=== PATIENT | female | born 1980 | race African-American/Black ===

== ENCOUNTER 2017-02-08 15:13 | Outpatient (CLI) | payer BC ==
[~2017-02-08 15:13] MED LIST: FOLI1TAB7 PO; LEVO88TA3 PO; ONDA4TAB10 SL; PRENTAB26 PO
== END 2017-02-08 16:15 | disposition home or self-care (01) ==
LOC: C.OPB 15:13 → C.LD 15:14 → C.OPB 16:15
PROVIDERS: ATTEND Obstetrics & Gynecology
DX: O30.043 Twin pregnancy, dichorionic/diamniotic, third trimester (principal); Z3A.32 32 weeks gestation of pregnancy

== ENCOUNTER 2017-02-17 09:00 | Outpatient (CLI) | payer BC ==
[2017-03-10] MEDS ORDERED: OXYC-57 PO (06:56)
[2017-03-10] MEDS ORDERED: MTR600X PO (06:56)
== END 2017-02-17 10:00 | disposition home or self-care (01) ==
LOC: C.LD 09:00 → C.OPB 09:00
PROVIDERS: ATTEND Obstetrics & Gynecology
DX: O30.049 Twin pregnancy, dichorionic/diamniotic, unspecified trimester (principal); Z3A.33 33 weeks gestation of pregnancy

== ENCOUNTER 2017-02-23 20:35 | Outpatient (CLI) | payer BC ==
[~2017-02-23] VITALS: Ht 165.1 cm; Wt 86.8 kg
[2017-02-23 21:23] VITALS: Ht 165.1 cm; Wt 86.8 kg
== END 2017-02-23 21:10 | disposition home or self-care (01) ==
LOC: C.OPB 20:35 → C.LD 20:38 → C.OPB 21:10
PROVIDERS: ATTEND Obstetrics & Gynecology
DX: O30.043 Twin pregnancy, dichorionic/diamniotic, third trimester (principal); Z3A.34 34 weeks gestation of pregnancy

== ENCOUNTER 2017-03-02 17:28 | Outpatient (CLI) | payer BC ==
[~2017-03-02 17:28] MED LIST changes: -CALC500C3 PO; -FAMO20TA11 PO; -MTR600X PO; -OXYC-57 PO
--- NOTE | 2017-05-15 14:17 | EDITING REQUIRED CODING QUERY ---
DIAGNOSIS NEEDED To promote full compliance with coding requirements relating to patient care, physician participation is requested in all cases of extra hand uncertainty. Please assist us with the question(s) below: Coding Question: The patient received care in labor and delivery on 03/02/17 as noted within the record. Please document the diagnosis that is being addressed by the medication/treatment. Provider Response: DIAGNOSIS: twins Thank you for your assistance, Jennifer Villagran - Cds Sales Advisor
== END 2017-03-02 18:30 | disposition home or self-care (01) ==
LOC: C.OPB 17:28 → C.LD 17:29 → C.OPB 18:30
PROVIDERS: ATTEND Obstetrics & Gynecology
DX: O30.043 Twin pregnancy, dichorionic/diamniotic, third trimester (principal); Z3A.36 36 weeks gestation of pregnancy

== ENCOUNTER → 2017-03-02 | Outpatient (CLI) | payer BC ==
[~2017-03-02] MED LIST changes: +CALC500C3 PO; +FAMO20TA11 PO; +MTR600X PO; +OXYC-57 PO
== END | disposition home or self-care (01) ==
LOC: C.LABSPEC 17:47
PROVIDERS: ATTEND Obstetrics & Gynecology
DX: O09.813 Supervision of pregnancy resulting from assisted reproductive technology, third trimester (principal)

== ENCOUNTER 2017-03-06 16:01 | Inpatient (IN) | payer BC ==
[~2017-03-06] VITALS: Ht 165.1 cm; Wt 90.0 kg
[2017-03-06 17:20] LABS: BASO % 0.3 %; BASO ABS # 0.02 K/uL (0-0.2); COMPLETE YES; EOS % 2.6 %; HEMATOCRIT 33.1 % (37-47); IG% 0.8 %; LYMPH ABS # 1.99 K/uL (1.2-3.4); MEAN CELL VOLUME 88.3 fL (80-100); MEAN CORPUSCULAR HEMOGLOBIN 27.7 pg (25-34); MEAN CORPUSCULAR HGB CONC 31.4 g/dl (32-36); MEAN PLATELET VOLUME 11.8 fL (7.4-10.4); MONO % 9.5 %; NEUT % 55.8 %; PLATELET COUNT 114 K/uL (130-400); RED BLOOD COUNT 3.75 M/uL (4.2-5.4); WHITE BLOOD COUNT 6.42 K/uL (4.8-10.8)
[2017-03-06 18:08] LABS: ALB/GLOB RATIO 0.5 (0.9-2); ALKALINE PHOSPHATASE 200 U/L (45-117); ALT/SGPT 18 U/L (12-78); AST/SGOT 31 U/L (15-37); BLOOD UREA NITROGEN 14 mg/dl (7-18); CALCIUM 8.7 mg/dl (8.5-10.1); CARBON DIOXIDE 24 mmol/L (21-32); CHLORIDE 109 mmol/L (98-107); GLUCOSE 73 mg/dl (70-99); POTASSIUM 4.6 mmol/L (3.5-5.1); SODIUM 139 mmol/L (136-145)
[2017-03-06] MEDS ORDERED: FAMO20TA11 PO (18:32)
[2017-03-06] MEDS ORDERED: CALC500C3 PO (18:33)
[2017-03-06 18:34] VITALS: Ht 165.1 cm; Wt 90.0 kg
[2017-03-06] MEDS ORDERED: LACTATED RINGER'S 1000ML 1,000 ML IV SCH ×2 (20:40→22:58)
[2017-03-06] MEDS ORDERED: CITRIC ACID/SODIUM CITRATE 15 ML UDC PO ONE (20:45)
[2017-03-06] MEDS ORDERED: CLINDAMYCIN IV 900 MG in DEXTROSE 5% ADD-VANTAGE 100ML 100 ML IV ONE (21:00)
[2017-03-06 21:24] LABS: BASO % 0.3 %; BASO ABS # 0.02 K/uL (0-0.2); COMPLETE YES; EOS % 2.7 %; HEMATOCRIT 35.4 % (37-47); IG% 0.5 %; LYMPH % 32.7 %; LYMPH ABS # 2.57 K/uL (1.2-3.4); MEAN CELL VOLUME 88.5 fL (80-100); MEAN CORPUSCULAR HGB CONC 30.5 g/dl (32-36); MEAN PLATELET VOLUME 11.4 fL (7.4-10.4); MONO % 7.1 %; NEUT % 56.7 %; PLATELET COUNT 112 K/uL (130-400); WHITE BLOOD COUNT 7.87 K/uL (4.8-10.8)
[2017-03-06] MEDS ORDERED: FENTANYL CITRATE INJ 50 MCG/1 ML 2 ML VIAL ONE (21:34)
[2017-03-06] MEDS ORDERED: MoRPHine SULFATE PF 1 MG/ML 10 ML AMP/VIAL ONE (21:34)
[2017-03-06] MEDS ORDERED: OXYTOCIN INJ 10 UNITS/ML VIAL ONE (21:35)
--- NOTE | 2017-03-06 21:54 | HISTORY & PHYSICAL EXAMINATION ---
DATE OF ADMISSION: 03/06/2017 ADMISSION DIAGNOSES: 1. Dichorionic/diamniotic intrauterine at 36 and 0/7 weeks. 2. Preeclampsia with severe features. HISTORY: Kelsie is a 37-year-old female, 2, para 1-0-0-1, with an EDC of 04/02/2017. This is an IVF with embryo transfer with Jermain Perry on 07/15/2016. Her EDC is 04/02/2017 based on excellent dating. She presented to labor and delivery for routine nonstress test of these twin babies. So far, the had been uncomplicated. She has hypothyroid and has been managed. She had a reactive NST x2 for these babies, but when we dipped her urine, it showed +3 protein. This was the first proteinuria dipped throughout this . Her pressures under observation were 122-139/81-90. Her pressures in the office had been as low as 98/60 and most recently at her 35-week visit was 108/84. She had laboratory values done showing normal liver functions, creatinine of 1.10, hemoglobin of 10.4, hematocrit of 33.1, and a platelet count of 114,000. The patient denies history of kidney issues and I have no other comparative creatinine, so this is quite abnormal. I do have a platelet comparison from 08/2016 which was 304,000. I believe that this patient has preeclampsia with severe features. I discussed this case with Dr. Fernández in Maternal Medicine at [facility], she agrees with my assessment and recommends delivery. The patient had hoped to have a vaginal delivery as she had previously had a vaginal delivery and both babies are head down. We spent a long time discussing the risks, benefits, and side effects of proceeding with immediate delivery versus induction. We discussed the possibility of a vaginal delivery of 1 baby and the need for, whatever reason, of a delivery for baby #2. We discussed that already her platelets were low at 114,000 and I suspected with time they would continue to decrease. We discussed that anesthesia will likely not place any kind of regional anesthetic should her platelets drop below 100,000. So if we proceeded with induction, she would likely need cervical ripening, this would take time, and it is possible that she would bypass an opportunity where she could receive regional anesthetic. We discussed that if she was successful, that certainly the vaginal-vaginal situation for delivery would have less pain and discomfort for the patient. We discussed also the risks proceeding with delivery. Additionally, we discussed the risks that at 36 weeks, we may have breathing issues that might require transfer of 1 or both of the babies, although this would be quite unlikely given the gestational age. After prolonged discussion and answering all of the patient and her 's questions, they have decided to proceed with controlled section delivery at this time. PAST OBTECTRICAL AND GYNECOLOGIC HISTORY: This is the patient's second . Her first was in 10/2015, this was a normal spontaneous vaginal delivery of a 7-pound 2-ounce baby. This was an uncomplicated delivery, although it was postdates induction and did take quite some time. She denies history of abnormal Pap smears or sexually transmitted illnesses. ALLERGIES: TO PENICILLIN. THIS WAS A SKIN TEST THAT CAUSED HIVES. She has not had cephalosporins to her knowledge. MEDICATIONS: Include Synthroid, Zofran as needed, folic acid, vitamin, iron, and Pepcid-AC as needed. PAST MEDICAL HISTORY: Significant for anxiety and depression for which she currently takes no medications, hypothyroidism, and she has had the varicella vaccine. SURGICAL HISTORY: Includes a D\T\C hysteroscopy, treatment for infertility with IVF, a ganglion cyst removed from her left foot, and oral surgery. SOCIAL HISTORY: The patient denies tobacco, alcohol or drug use. She lives with her and her son Ankush. PHYSICAL EXAMINATION: GENERAL: This is a well-developed, well-nourished -Italian female in no acute distress. VITAL SIGNS: Highest blood pressure 139/90, pulse normal. NECK: Supple without thyromegaly or lymphadenopathy. CHEST: Clear to auscultation bilaterally. CARDIOVASCULAR: Regular rate and rhythm without murmurs, gallops or rubs. BACK: Without costovertebral angle tenderness. ABDOMEN: Gravid, soft, nontender. There is no right upper quadrant tenderness. EXTREMITIES: Show +1 to 2 edema to the knee. Normal DTRs and no clonus. GENITALIA: Cervix is deferred. Tocodynamometer shows no contractions. External monitor shows both babies to be category 1. LABORATORY DATA: As noted above. Blood type O positive, antibody negative, rubella immune, RPR nonreactive, hepatitis B negative, HIV negative. Chlamydia and gonorrhea cultures negative. Cystic fibrosis screening negative. Glucose tolerance test x2 normal. Group B strep has not been performed yet. ASSESSMENT AND PLAN: Kelsie is a 37-year-old 2, para 1-0-0-1, at 36 and 0/7 weeks with di/di in vitro fertilization twins. She now has developed preeclampsia with severe features with a creatinine of 1.1, +3 proteinuria, and platelets that are 114,000. The patient and her , after discussion with Dr. Fernández at [facility] with Maternal Medicine, have been recommended delivery which is what I had recommended to the patient and her . After significant conversation, we have decided to proceed with primary section. The risks of the procedure were discussed with the patient including the risks of anesthesia, bleeding requiring transfusion, infection and poor wound healing, damage to surrounding structures including bowel, bladder, vessels, nerves and ureters, with need for further surgery, hospitalization or intervention. We discussed the possibility of injury to the baby. We discussed the possibility with any surgery including heart attack, blood clot, stroke or . Consent was reviewed and signed. We planned on proceeding with delivery. The patient accepts the small risk of prematurity and transferring of the babies that might occur at 36 weeks. They would prefer to keep all their family together if possible. CONCHITA
[2017-03-06] MEDS ORDERED: PHENYLEPHRINE HCL INJ 10 MG/ML VIAL ONE (22:31)
[2017-03-06] MEDS ORDERED: ONDANSETRON INJ 2 MG/ML 2 ML VIAL ONE ×2 (22:31→23:01)
[2017-03-06] MEDS ORDERED: OXYTOCIN INJ 20 UNITS in LACTATED RINGER'S 1000ML 1,000 ML IV SCH (22:58)
[2017-03-06] MEDS ORDERED: MAGNESIUM SULFATE / WTR 1,000 ML IV ONE (22:58)
[2017-03-06] MEDS ORDERED: DC PCA PRN (23:00)
[2017-03-06] MEDS ORDERED: DIPHTHERIA/TETANUS/PERTUSSIS 0.5 ML SYR/VIAL IM. ONE (23:00)
[2017-03-06] MEDS ORDERED: SUPERCREAM 0.870 % 15GM JAR EXT PRN (23:00)
[2017-03-06] MEDS ORDERED: LANOLIN OINT EXT PRN ×2 (23:00)
[2017-03-06] MEDS ORDERED: NALOXONE HCL INJ 0.08 MG in SYRINGE 1.8 ML IV PRN (23:04)
[2017-03-06] MEDS ORDERED: LACTATED RINGER'S 1000ML 500 ML IV PRN (23:04)
[2017-03-06] MEDS ORDERED: SODIUM CHLORIDE 0.9% 1000ML 1,000 ML IV PRN (23:04)
[2017-03-06] MEDS ORDERED: NALOXONE HCL INJ 1 MG in SODIUM CHLORIDE 0.9% 1000ML 1,000 ML IV PRN (23:04)
--- NOTE | 2017-03-06 23:12 | Medical Student: [facility] ---
Immediate Operative Summary Operative Date March 06, 2017. Pre-Operative Diagnosis Twin at 36 weeks complicated by severe preeclampsia Post-Operative Diagnosis Same Procedure(s) Performed Primary c/s Surgeon Dr. Wan Twine Winder Surgeon(s) Dr. Albert Estimated Blood Loss 800cc Findings Viable Baby A, boy delivered breech, 7/8, 6lbs. Viable Baby B, girl transverse, but rotated to vertex, 7/7/8, [id number] Normal appearing uterus and adnexa noted. Fluids (cc crystalloids) IVF - 1800cc Specimens Placenta 2x (Baby A and Baby B) Drains Cody Anesthesia Spinal Complication(s) None Disposition L&D
[2017-03-06] MEDS ORDERED: NALBUPHINE HCL INJ 10 MG/ML AMP IV PRN (23:15)
[2017-03-06] MEDS ORDERED: NALOXONE HCL 0.4 MG/1 ML VIAL/CARP IV PRN (23:15)
[2017-03-06] MEDS ORDERED: ONDANSETRON INJ 2 MG/ML 2 ML VIAL IV PRN (23:15)
[2017-03-06] MEDS ORDERED: MoRPHine SULFATE PF 1 MG/ML 10 ML AMP/VIAL EPI PRN (23:15)
[2017-03-06] MEDS ORDERED: MEPERIDINE HCL 25 MG/ML CARP IV PRN (23:15)
[2017-03-06] MEDS ORDERED: MoRPHine SULFATE 2 MG/ML CARP IV PRN (23:15)
[2017-03-06] MEDS ORDERED: EpHEDrine SULFATE INJ 50 MG/ML AMP IV PRN (23:15)
[2017-03-06] MEDS ORDERED: DiphenhydrAMINE HCL 50 MG/ML VIAL IV PRN (23:15)
[2017-03-06] MEDS ORDERED: DC INTRASPINAL MORPHINE SCH (23:15)
[2017-03-06] MEDS ORDERED: NO NARCOTICS OR SEDATIVES SCH (23:15)
[2017-03-06] MEDS ORDERED: KETOROLAC TROMETHAMINE 30 MG/ML VIAL IV. PRN (23:15)
--- NOTE | 2017-03-06 23:15 | [facility] Post Operative Brief Note ---
Immediate Operative Summary Operative Date March 06, 2017. Pre-Operative Diagnosis Nelson IUP at 36 weeks Pre-eclampsia with severe features Post-Operative Diagnosis Nelson IUP at 36 weeks Pre-eclampsia with severe features Procedure(s) Performed Primary Caesarean Section Live male child at 2213 "A" Live female child at 2214 "B" Surgeon Dr. Wan Inspectors And Regulatory Officers Surgeon(s) Dr. Albert Estimated Blood Loss 800ml Findings VIABLE MALE , BABY A, DELIVERED BREECH, APGARS 7/8, WT 6#. VIABLE FEMALE , BABY B, TRANSVERSE AFTER DELIVERY OF B AND CONVERTED TO VERTEX, APGARS 7 /7/8., WT 5#15 OZ. NL UTERUS, TUBES AND OVARIES NOTED. Fluids (cc crystalloids) 1800CC Specimens A: Placenta "A"-exam Placenta "B"-exam B: Cord blood "A" Cord blood "B" C: Arterial & Venous Cord Gases "A" Arterial & Venous Cord Gases "B" Drains ROWELL Anesthesia SPINAL Complication(s) None Disposition L&D
[2017-03-06] MEDS ORDERED: MISOPROSTOL 200 MCG TAB ONE (23:34)
[2017-03-06] MEDS ORDERED: MISOPROSTOL 200 MCG TAB PR STA (23:42)
--- NOTE | 2017-03-06 23:59 | Anesthesiology Progress Note ---
Anesthesia Post Op Note Date & Time March 06, 2017 at 23:59 Notes Mental Status: alert / awake / arousable, participated in evaluation Pt Amnestic to Procedure: Yes Nausea / Vomiting: adequately controlled Pain: adequately controlled Airway Patency, RR, SpO2: stable & adequate BP & HR: stable & adequate Hydration State: stable & adequate Neuraxial Anesthesia: was administered, sensory block is resolving Anesthetic Complications: no major complications apparent The patient has some postop bleeding from uterine atony that Dr. Wan is monitoring.
[2017-03-07 00:06] LABS: HEMATOCRIT 33.5 % (37-47); MEAN CELL VOLUME 88.9 fL (80-100); MEAN CORPUSCULAR HEMOGLOBIN 28.1 pg (25-34); MEAN PLATELET VOLUME 11.9 fL (7.4-10.4); PLATELET COUNT 107 K/uL (130-400); RED BLOOD COUNT 3.77 M/uL (4.2-5.4)
[2017-03-07 00:13] LABS: MEAN CORPUSCULAR HGB CONC 31.6 g/dl (32-36)
[2017-03-07] MEDS: GENTAMICIN INJ 80 MG in DEXTROSE 5% 100ML 100 ML IV SCH ×3 (02:11→17:34)
[2017-03-07] MEDS ORDERED: PHENYLEPHRINE 100MCG/ML 5ML SYR ONE (02:49)
[2017-03-07] MEDS: CLINDAMYCIN IV 900 MG in DEXTROSE 5% ADD-VANTAGE 100ML 100 ML IV SCH ×2 (06:19→13:44)
[2017-03-07 06:27] LABS: CALCIUM 8.1 mg/dl (8.5-10.1); POTASSIUM 4.5 mmol/L (3.5-5.1)
[2017-03-07 06:28] LABS: HEMATOCRIT 29.7 % (37-47); MEAN CELL VOLUME 87.4 fL (80-100); MEAN CORPUSCULAR HEMOGLOBIN 28.8 pg (25-34); MEAN PLATELET VOLUME 12.2 fL (7.4-10.4); PLATELET COUNT 101 K/uL (130-400); PLT ESTIMATE DECREASED; WHITE BLOOD COUNT 10.38 K/uL (4.8-10.8)
[2017-03-07 06:31] LABS: ALB/GLOB RATIO 0.5 (0.9-2)
[2017-03-07] MEDS: PRENATAL VITAMIN TAB PO SCH (08:27)
[2017-03-07] MEDS: SIMETHICONE 80 MG CHEW PO SCH ×3 (08:27→17:26)
[2017-03-07] MEDS: DOCUSATE SODIUM 100 MG CAP PO SCH ×2 (08:27→23:21)
--- NOTE | 2017-03-07 09:28 | OPERATIVE REPORT ---
DATE OF OPERATION: 03/06/2017 PREOPERATIVE DIAGNOSES: 1. Dichorionic/diamniotic twin intrauterine at 36 and 0/7 weeks. 2. Preeclampsia with severe features. POSTOPERATIVE DIAGNOSES: Same. PROCEDURES: Primary low transverse section. SURGEON: Sylwia Wan MD. BOBBIN CLEANER HAND: Marquise Albert MD and KYAW Hsieh. ANESTHESIA: Spinal. ESTIMATED BLOOD LOSS: 800 mL. FLUIDS: 1800 mL. URINE OUTPUT: 150 mL of clear yellow urine draining from the bladder at the end of the procedure. INDICATIONS: Kelsie is a 37-year-old white female 2, para 1-0-0-1, who presented for a twin NST at 36 weeks. She was discovered to have 3+ protein, which was a new finding and a creatinine of 1.10 and platelets of 114,000. Given this situation, the diagnosis of preeclampsia with severe features was made, despite the fact that her pressures were not severe at this time. A discussion was had with maternal medicine, who recommended delivery. After a long discussion, the patient decided on delivery. FINDINGS: Viable first baby delivered was a male in breech presentation, delivered from a damaris breech presentation, Apgars 7 and 8, weighing 6 pounds. Baby B was a transverse after the delivery of baby A and was converted from head in the left upper quadrant to cephalic and then delivered from cephalic presentation. Apgars 7, 7 and 8, weight 5 pounds 15 ounces. Clear fluid was noted with both babies. Normal uterus, tubes, and ovaries were noted bilaterally. COMPLICATIONS: None. DRAINS: Cody. DISPOSITION: To recovery room in stable condition. DESCRIPTION OF PROCEDURE: The patient was taken to the operating room where she was identified verbally and by bracelet. She was seated on the operating table, where a spinal anesthetic was placed by Dr. Burroughs with anesthesia. She was then placed in dorsal supine position and a leftward tilt. A Cody catheter was placed sterilely. She was prepped and draped in normal sterile fashion. Her anesthetic was tested and found to be adequate. A timeout was held, identifying correct patient, position, procedure and preoperative antibiotics. A Pfannenstiel skin incision was made with the knife and taken down to the underlying layer of fascia with Bovie electrocautery. Bleeding was attended to with Bovie electrocautery. Fascia was incised in the midline with cautery and taken out laterally with scissors. The superior edge of the fascial incision was grasped, elevated and the underlying layer of rectus muscle was taken off bluntly and with scissors. Bleeding was attended to with Bovie electrocautery. In a similar fashion, the inferior edge of the fascial incision was grasped, elevated and the underlying layer of rectus muscle was taken off bluntly and with scissors. The muscles were bluntly and sharply in the midline. The peritoneum was entered bluntly, was taken superiorly and inferiorly sharply with scissors with good visualization of the bladder. The bladder blade was then placed. The bladder flap was created by grasping the vesicouterine peritoneum with a snap entering with scissors and taken out laterally with scissors and creating a bladder flap digitally. The bladder blade was placed. A hysterotomy incision was made with a knife and this was stretched with the yarn polishing machine operator's fingers. The first bag was then bulging through the hysterotomy incision. It was ruptured with a snap and clear fluid was noted. The yarn polishing machine operator's hands were reached into the uterus and I thought I was going to deliver foot, but actually delivered a hand. I then replaced the hand and was then able to deliver the breech and the baby was delivered from damaris breech presentation. The legs were reduced. The shoulders were reduced and then the head was delivered with some fundal pressure. There was immediate cry. The nose and mouth were bulb suctioned. The cord was clamped and cut. The was handed off to waiting airplane pilot photogrammetry and nursing for drying and attention. Cord blood and segment were obtained. The bag of the second baby was then palpated and the fetus was found to be in transverse with head to the maternal left. The baby was then turned and converted to cephalic. The membranes were ruptured and the infant was delivered via cephalic presentation with fundal pressure. There was no nuchal cord. There was immediate cry. Nose and mouth were bulb suctioned. Cord was clamped and cut. The infant was handed off to waiting pediatricians and nursing for drying and attention. Cord blood and segment were obtained. One placenta was delivered by expression and the second placenta was delivered by manual extraction. The uterus was exteriorized and cleared of all clot and debris with moistened laparotomy sponges. Bleeding at the left side of the hysterotomy incision was clamped with a T-clamp and then the hysterotomy incision was repaired in 2 layers, the first in a running locked layer and the second in an imbricating layer. Several [id number] sutures of 0 Vicryl were required for hemostasis at the hysterotomy incision. The posterior cul-de-sac was then cleared of all clot and debris and irrigated. The tubes and ovaries were noted to be normal bilaterally. There were several small paratubal cysts noted on both sides. The uterus was then re-interiorized. The hysterotomy incision was again inspected and required one more [id number]-[id number] suture for hemostasis. Hemostasis was then noted to be excellent. The muscles were reapproximated with a running suture of 0-Vicryl. The rectus muscle was examined and found to be hemostatic. The fascia was reapproximated in the midline with 0-Vicryl. The subcuticular tissue was irrigated and bleeding was attended to with Bovie electrocautery. The skin was then closed with subcuticular stitch of 4-0 Vicryl. All sponge, lap and needle counts were correct x2. The patient tolerated the procedure well and was taken to the recovery room in stable condition. In labor and delivery room, she will remain on magnesium sulfate prophylaxis. I attest to the content of the Intraoperative Record and any orders documented therein. Any exceptio ns are noted below.
[2017-03-07] MEDS ORDERED: MEPERIDINE HCL 50 MG/ML CARP IV PRN ×2 (16:00)
[2017-03-07] MEDS ORDERED: OXYCODONE/ACETAMINOPHEN 5-325 TAB PO PRN (16:00)
[2017-03-07] MEDS ORDERED: DiphenhydrAMINE HCL 50 MG/ML VIAL IV PRN (16:00)
[2017-03-07] MEDS ORDERED: KETOROLAC TROMETHAMINE 30 MG/ML VIAL IV. PRN (16:00)
[2017-03-07 17:47] LABS: HEMATOCRIT 32.7 % (37-47); MEAN CELL VOLUME 86.5 fL (80-100); MEAN CORPUSCULAR HEMOGLOBIN 28.3 pg (25-34); MEAN CORPUSCULAR HGB CONC 32.7 g/dl (32-36); MEAN PLATELET VOLUME 11.9 fL (7.4-10.4); PLATELET COUNT 124 K/uL (130-400); RED BLOOD COUNT 3.78 M/uL (4.2-5.4); WHITE BLOOD COUNT 9.33 K/uL (4.8-10.8)
[2017-03-07 18:43] LABS: ALB/GLOB RATIO 0.6 (0.9-2); BUN/CREATININE RATIO 8.5 (10-20); CALCIUM 7.1 mg/dl (8.5-10.1); CREATININE 1.1 mg/dl (0.60-1.20); MAGNESIUM 6.7 mg/dl (1.8-2.4); POTASSIUM 4.4 mmol/L (3.5-5.1)
[2017-03-07] MEDS ORDERED: CALCIUM CARBONATE 500 MG CHEWABLE PO PRN (18:45)
[2017-03-07 22:00] VITALS: BP 115/80; PULSE 62; TEMP 36.5; O2SAT 98
[2017-03-08 00:15] VITALS: BP 122/85; PULSE 61; TEMP 36.7
[2017-03-08] MEDS: OXYCODONE/ACETAMINOPHEN 5-325 TAB PO PRN ×4 (03:18→21:14)
[2017-03-08] MEDS: IBUPROFEN 600 MG TAB PO PRN ×4 (03:19→21:14)
[2017-03-08 04:25] VITALS: BP 131/86; PULSE 73; TEMP 36.8
[2017-03-08 06:36] LABS: HEMATOCRIT 28.7 % (37-47)
--- NOTE | 2017-03-08 07:06 | Progress Note ---
Subjective March 08, 2017. Subjective conversation w/ patient, physical exam, lab review Ambulation: ambulating normally Voiding: no voiding problems Passing Gas: No Diet Tolerance: Regular Diet Lochia: Small Feeding Type: Breast Feeding Pain: improves with med Comment: Patient was seen at the bedside. No acute event overnight. Review of Systems Constitutional: No fever Respiratory: No cough, No shortness of breath Cardiac: No chest pain Breast: No breast lump Abdomen: No nausea, No pain, No vomiting Female : No dysuria, No urinary frequency Denies headache Objective Vital Signs Date Time Temp Pulse Resp B/P Pulse Ox O2 Delivery O2 Flow Rate FiO2 03/08/17 04:25 36.8 73 20 131/86 Room Air 03/08/17 00:15 36.7 61 18 122/85 Room Air 03/08/17 00:15 Room Air 03/07/17 22:00 36.5 62 20 115/80 98 Room Air Physical Exam General Appearance: WELL-APPEARING, WD/WN, NO APPARENT DISTRESS Respiratory/Chest: chest non-tender, lungs clear, normal breath sounds, no respiratory distress Cardiovascular: regular rate, rhythm Abdomen: normal bowel sounds, non tender, soft Fundus: Firm, Tender, Relation to Umbilicus (at the U) Extremities: non-tender, no calf tenderness, + pedal edema Laboratory Results Last 24 Hours Test 03/07/17 17:35 03/08/17 06:08 White Blood Count 9.33 K/uL Red Blood Count 3.78 M/uL Hemoglobin 10.7 g/dL 9.3 g/dL Hematocrit 32.7 % 28.7 % Mean Corpuscular Volume 86.5 fL Mean Corpuscular Hemoglobin 28.3 pg Mean Corpuscular Hemoglobin Concent 32.7 g/dl RDW Standard Deviation 52.5 fL RDW Coefficient of Variation 16.8 % Platelet Count 124 K/uL Mean Platelet Volume 11.9 fL Sodium Level 134 mmol/L Potassium Level 4.4 mmol/L Chloride Level 101 mmol/L Carbon Dioxide Level 26 mmol/L Anion Gap 7.0 mmol/L Blood Urea Nitrogen 9 mg/dl Creatinine 1.10 mg/dl Est Creatinine Clear Calc Drug Dose 77.6 ml/min Estimated GFR () 74.3 Estimated GFR (Non- 64.1 BUN/Creatinine Ratio 8.5 Random Glucose 106 mg/dl Calcium Level 7.1 mg/dl Magnesium Level 6.7 mg/dl Total Bilirubin 0.4 mg/dl Aspartate Amino Transf (AST/SGOT) 34 U/L Alanine Aminotransferase (ALT/SGPT) 16 U/L Alkaline Phosphatase 183 U/L Total Protein 5.6 gm/dl Albumin 2.0 gm/dl Globulin 3.6 gm/dl Albumin/Globulin Ratio 0.6 Medications Current Inpatient Medications Medications (Trade) Dose Ordered Sig/Juanito Route Start Time Stop Time Status Last Admin Dose Admin Lactated Ringer's (Lr 1000ml) 1,000 ml @ 125 mls/hr Q8H IV 03/06/17 22:58 04/05/17 22:57 03/07/17 17:21 125 MLS/HR Ketorolac Tromethamine (Toradol Inj) 30 mg Q6H PRN IV. 03/07/17 16:00 03/12/17 15:59 03/07/17 19:52 30 MG Meperidine HCl (Demerol Inj) 50 mg Q4H PRN IV 03/07/17 16:00 03/21/17 15:59 Meperidine HCl (Demerol Inj) 75 mg Q4H PRN IV 03/07/17 16:00 03/21/17 15:59 Oxycodone/ Acetaminophen (Percocet 5-325mg Tab) 1 tab Q4H PRN PO 03/07/17 16:00 03/21/17 15:59 03/08/17 03:18 1 TAB Oxycodone/ Acetaminophen (Percocet 5-325mg Tab) 2 tab Q4H PRN PO 03/07/17 16:00 03/21/17 15:59 Ibuprofen (Motrin Tab) 600 mg Q4H PRN PO 03/06/17 23:00 04/05/17 22:59 03/08/17 03:19 600 MG Prenat Multivit/ Rawlins/Iron/Folic Ac ( Vitamin Tab) 1 tab DAILY PO 03/07/17 08:00 04/06/17 07:59 Docusate Sodium (coLACE CAP) 100 mg BID PO 03/07/17 08:00 04/06/17 07:59 Cocaine HCl (Supercream 0.870% Cr) BID PRN EXT 03/06/17 23:00 03/20/17 22:59 Lanolin (Lanolin Oint) PRN PRN EXT 03/06/17 23:00 04/05/17 22:59 Simethicone (Mylicon Chew Tab) 80 mg QID PO 03/07/17 09:00 04/06/17 08:59 03/07/17 17:26 80 MG Diphenhydramine HCl (Benadryl Cap) 25 mg QID PRN PO 03/07/17 16:00 04/06/17 15:59 Diphenhydramine HCl (Benadryl Inj) 25 mg QID PRN IV 03/07/17 16:00 04/06/17 15:59 Morphine Sulfate (Duramorph Pf Inj) TODAY PRN EPI 03/06/17 23:15 Calcium Carbonate (Tums Chew Tab) 1,000 mg Q4 PRN PO 03/07/17 18:45 04/06/17 18:44 Assessment and Plan Problem List Medical Problems: (1) Dehydration Status: Acute (2) Status: Acute (3) Vomiting Status: Acute Post-Op Day#: 2 Continue Routine Care: A/P: This is a 37 y/o female, , s/p . She is ambulating and clinically stable. Plan: - Vitals signs are reviewed and WNL (Tmax 36.8 ) - Last Hgb is 9.3 - Blood type O+, GBS neg, Rubella Immune - Routine care - Encourage ambulation, monitor and control pain with medication as needed , continue with regular diet as tolerated and monitor lochia - Stool softeners and sitz bath recommended - Encourage breast feeding and educate about breast feeding Resident Physician Supervision Note: I interviewed and examined the patient. Discussed with Dr. Gardiner and agree with findings and plan as documented in the note. Any exceptions or clarifications are listed here: [None] Documented By: Marquise Albert
[2017-03-08 07:28] VITALS: BP 120/83; PULSE 63; TEMP 36.8; O2SAT 98
[2017-03-08] MEDS: SIMETHICONE 80 MG CHEW PO SCH ×4 (07:56→19:52)
[2017-03-08] MEDS: DOCUSATE SODIUM 100 MG CAP PO SCH ×2 (07:57→19:52)
[2017-03-08] MEDS: PRENATAL VITAMIN TAB PO SCH (07:57)
[2017-03-08 15:40] VITALS: BP 132/91; PULSE 76; TEMP 36.8; O2SAT 100
[2017-03-09 00:15] VITALS: BP 114/75; PULSE 66; TEMP 36.8
--- NOTE | 2017-03-09 07:05 | Progress Note ---
Subjective March 09, 2017. Subjective conversation w/ patient, physical exam Ambulation: ambulating normally Voiding: no voiding problems Passing Gas: Yes Diet Tolerance: Regular Diet Lochia: Small Feeding Type: Breast Feeding Pain: no pain issues Objective Vital Signs Date Time Temp Pulse Resp B/P Pulse Ox O2 Delivery O2 Flow Rate FiO2 03/09/17 00:15 36.8 66 16 114/75 Room Air 03/09/17 00:15 Room Air 03/08/17 15:45 Room Air 03/08/17 15:40 36.8 76 16 132/91 100 Room Air 03/08/17 07:28 36.8 63 16 120/83 98 Room Air 03/08/17 07:28 Room Air Physical Exam General Appearance: WELL-APPEARING, WD/WN, NO APPARENT DISTRESS Respiratory/Chest: lungs clear Cardiovascular: regular rate, rhythm Abdomen: non tender, soft Fundus: Firm, Relation to Umbilicus (2 down) Incision Description: Clean, Dry & Intact (with steris) Extremities: non-tender, no calf tenderness Assessment and Plan Problem List Medical Problems: (1) Dehydration Status: Acute (2) Status: Acute (3) Vomiting Status: Acute Post-Op Day#: 3 Continue Routine Care: stable, routine care. baby girl still in INBN.
[2017-03-09 07:30] VITALS: BP 130/92; PULSE 62; TEMP 36.6
[2017-03-09 07:39] VITALS: BP 116/80; PULSE 64; TEMP 36.9; O2SAT 100
[2017-03-09] MEDS: PRENATAL VITAMIN TAB PO SCH (07:50)
[2017-03-09] MEDS: DOCUSATE SODIUM 100 MG CAP PO SCH ×2 (07:50→20:07)
[2017-03-09] MEDS: IBUPROFEN 600 MG TAB PO PRN ×3 (07:51→17:58)
[2017-03-09] MEDS: OXYCODONE/ACETAMINOPHEN 5-325 TAB PO PRN (07:51)
[2017-03-09] MEDS: SIMETHICONE 80 MG CHEW PO SCH ×4 (07:51→20:07)
[2017-03-09] MEDS: LEVOTHYROXINE 88 MCG TAB PO SCH (10:01)
[2017-03-09 15:30] VITALS: BP 130/81; PULSE 71; TEMP 36.4
[2017-03-09 23:15] VITALS: BP 129/86; PULSE 73; TEMP 36.8
[2017-03-10] MEDS: IBUPROFEN 600 MG TAB PO PRN ×2 (06:45→11:24)
--- NOTE | 2017-03-10 06:55 | Progress Note ---
Subjective March 10, 2017. Subjective conversation w/ patient, physical exam Ambulation: ambulating normally Voiding: no voiding problems Feeding Type: Breast Feeding Objective Vital Signs Date Time Temp Pulse Resp B/P Pulse Ox O2 Delivery O2 Flow Rate FiO2 03/09/17 23:15 36.8 73 18 129/86 Room Air 03/09/17 23:15 Room Air 03/09/17 15:30 36.4 71 20 130/81 Room Air 03/09/17 15:30 Room Air 03/09/17 07:39 36.9 64 16 116/80 100 Room Air 03/09/17 07:30 Room Air 03/09/17 07:30 36.6 62 16 130/92 Room Air Physical Exam General Appearance: WELL-APPEARING, NO APPARENT DISTRESS Incision Description: Clean, Dry & Intact Extremities: no calf tenderness Assessment and Plan Problem List Medical Problems: (1) Dehydration Status: Acute (2) Status: Acute (3) Vomiting Status: Acute Post-Op Day#: 4 Continue Routine Care: - doing well - desires d/c - instructions/Rx given - f/u in 6 weeks
[2017-03-10] MEDS ORDERED: MTR600X PO (06:56)
[2017-03-10] MEDS ORDERED: OXYC-57 PO (06:56)
--- NOTE | 2017-03-10 06:57 | Discharge Instructions ---
Discharge Instructions Date of Service March 10, 2017. Admission Reason for Admission: Non Stress Test Discharge Discharge Diagnosis / Problem: sa,e Discharge Goals Goal(s): Routine recovery after Medications Continue Dispensed Medications: supercream, dermaplast Activity Recommendations Activity Limitations: as noted below . Instructions / Follow-Up Instructions / Follow-Up ACTIVITY RECOMMENDATIONS: * Gradual return to full activity over the next 2-3 weeks. * No lifting - nothing heavier than baby over the next 2-3 weeks. * Do not engage in vigorous exercise, sexual activity or sports until cleared by your physician. * Do not drive or operate any motorized equipment until cleared by your physician. * You may shower/bathe daily. MEDICATIONS: For discomfort or pain, you may use Acetaminophen (Tylenol), Ibuprofen (Advil), or Naproxen (Aleve) following the package directions. For constipation you may use Colace following the package directions. BREAST CARE: If you are not breast feeding: * Wear a supportive bra 24 hours a day for one to two weeks. * Avoid stimulating your breasts and nipples as much as possible during the first few weeks after delivery. * When taking a shower, have the warm water hit your back, not breasts. * When your breasts feel full, apply ice packs. Usually three to four times a day helps ease the discomfort. * Take a mild pain medication (Tylenol / Motrin) when you are uncomfortable. If breast feeding: * Use breast milk to lubricate nipples. Lansinoh cream may be used for sore nipples. You do not need to remove cream prior to breast feeding. If using a different brand of cream, check the label for directions regarding removal of cream prior to nursing. * Wear a supportive bra. * If having problems with breasts or breast feeding, call a [facility] consultant or your health care provider. SPECIAL CARE INSTRUCTIONS: When you are discharged from the hospital, it is important for you to follow the instructions listed below: * During the first week at home, you should be able to care for yourself and your baby. In addition, the usual light household activities are encouraged. * Limit your activities to the way you feel. Do not try to clean the house or move furniture. Be sensible. * If you actively engage in sports and have done so up until the time of your delivery, you may resume these activities as soon as you feel able. This may take up to one month or even longer. Use good judgment. * Continue to take your vitamins for at least six weeks after the of your baby. * Your diet need not be limited unless you were on a special diet before your delivery. Breast-feeding mothers need around 2500 calories per day and at least 64-80 ounces of fluid per day (8 to 10 glasses). * You should eat foods from the four major food groups. Crash diets or fad diets are to be avoided. Eating lean meats, fresh fruits and vegetables, low-fat dairy products, high fiber foods and a regular exercise program, will help you get back to your pre- weight without putting your health at risk. * Constipation is sometimes a problem after delivery. Take a mild laxative as needed. If breast feeding, Milk of Magnesia is acceptable to use. You may use a suppository or Fleets enema. * A daily shower or tub bath is suggested. Wash incision daily with warm soapy water and pat dry. It doesn't need to be covered unless drainage is present. * A bloody vaginal discharge will usually continue until around four weeks . A small amount of bleeding may continue for as long as six weeks. Vaginal discharge changes from the bright red bleeding after delivery to pink then brownish and finally yellowish-pink before becoming white and disappearing. * Bleeding may increase with activity. Your first period may come in 4-8 weeks. If you are breast feeding, your period may be delayed even longer. * [place] (sex) can begin whenever both you and your partner feel comfortable and do not have any form of genital infection. It is recommended that you wait at least six weeks for internal and external healing to occur. If you have questions, please talk to your health care practitioner. A condom should be used to prevent infection and . * Foreplay, gentle intercourse and lubrication is very important the first several times to prevent pain. A water-based lubricant such as K-Y jelly or Astroglide may be used. * If you have RH negative blood and your baby is RH positive, you will receive RHOGAM by injection prior to discharge. The nurse will give you a card to keep with you that has the date and place that you received RHOGAM after delivery. * During your care, you had a Rubella screen done to check for the presence of rubella antibodies in your blood. If your test was negative, you will receive a Rubella vaccine prior to discharge. This vaccine may cause a fever, soreness at the injection site and flu-like symptoms. If these symptoms persist, notify your health care practitioner. is not advised for one month after a Rubella vaccine. * Verbalizes understanding of car seat law as reviewed with patient nursing. * Car Seat hand-out given and reviewed with patient by nursing. * Shaken baby information reviewed with patient by nursing. Call you doctor if: * Heavy bleeding (saturating several pads an hour) or passing clots the size of your fist. * A fever >101 degrees F (38.3 degrees C) on two occasions four hours apart and /or chills. * Unusual pain in the pelvic or vaginal areas. * Call the doctor for any increased redness, drainage or swelling around the incision and any pain unrelieved by prescribed pain medication. * "Baby Blues" lasting longer than two weeks. If you have any questions or concerns, call your health care practitioner at . FOLLOW UP VISIT: * Please call the office at to schedule a 6 week examination. It is important you keep this appointment. It is important for you to make arrangements for either yearly or twice yearly check-ups thereafter. Current Hospital Diet Patient's current hospital diet: Regular OB Diet Discharge Diet Recommended Diet: Regular OB Diet Procedures Procedures Performed: Primary Caesarean Section Live male child at 2213 "A" Live female child at 2214 "B" Pending Studies Studies pending at discharge: no Medical Emergencies . Who to Call and When: Medical Emergencies: If at any time you feel your situation is an emergency, please call 911 immediately. . Non-Emergent Contact Non-Emergency issues call your: Rail Technician Call Non-Emergent contact if: you have a fever, temperature is above 100.5, your pain is not controlled, your pain is worsening, wound has increased drainage, wound has increased redness . . "Provider Documentation" section prepared by Rodriguez Peña. . VTE Core Measure Inpt VTE Proph given/why not?: SCD's [place] Drug Monitoring Program Search Results: patient reviewed within database, no issues identified
[2017-03-10 08:31] VITALS: BP 127/89; PULSE 75; TEMP 36.7
[2017-03-10] MEDS: DOCUSATE SODIUM 100 MG CAP PO SCH (08:49)
[2017-03-10] MEDS: PRENATAL VITAMIN TAB PO SCH (08:49)
[2017-03-10] MEDS: SIMETHICONE 80 MG CHEW PO SCH ×2 (08:49→11:26)
[2017-03-10 11:09] VITALS: BP_DIAS 89; PULSE 75; TEMP 36.7
[2017-03-10] MEDS: LEVOTHYROXINE 88 MCG TAB PO SCH (11:23)
--- NOTE | 2017-03-14 09:41 | DISCHARGE SUMMARY ---
PREOPERATIVE DIAGNOSES: 1. Dichorionic/diamniotic intrauterine at 36 weeks. 2. Preeclampsia with severe features. HISTORY OF PRESENT ILLNESS: The patient is a 37-year-old [place] female 2, para 1-0-0-1 with an EDC of 04/02/2017. This is an IVF with embryo transfer at [facility] on 07/15/2016. Her EDC of 04/02/2017 is based on excellent dating. She presented to labor and delivery for routine nonstress test of these twin babies. So far, the has been uncomplicated. She is hypothyroid and has been managed well. She had a reactive NST for these babies, but when we dipped her urine, it showed 3+ protein. This was the first proteinuria dip throughout her . Her pressures under observation were 122-139/81-90. Her pressures in the office have been as low as 98/60 and her most recent blood pressure at her 35-week visit was 108/84. She had laboratory values done showing normal liver functions, a hemoglobin of 10.4, hematocrit of 33.1, a creatinine of 1.10 which was quite abnormal and a platelet count of 114,000. The patient denies history of kidney issues and I do not have any other comparative creatinine. I do have a comparison platelet from August 2016, which was 304,000. I believe that this patient does have preeclampsia with severe features. I discussed this case with Dr. Fernández in maternal medicine at [facility], who agrees with my assessment and recommends delivery. The patient had hoped to have a vaginal delivery as she previously had a vaginal delivery and both babies on ultrasound were head down. We spent a long time discussing the risks, benefits and side effects of proceeding with an immediate section versus induction. We discussed the possibility of vaginal delivery of the first baby and need for, whatever reason, of a delivery for baby #2. We discussed that already her platelets were low at 114,000 and I expect that they would continue to decrease. We discussed that anesthesia will likely not place any kind of regional anesthetic should her platelets dropped below 100,000. So if we proceed with induction, she would likely need cervical ripening and this would take time and it is possible that she would bypass an opportunity where she could receive regional anesthetic. We discussed that if she was successful that a certainly vaginal-vaginal situation for delivery would have less pain and discomfort for the patient. We also discussed the risks of proceeding with delivery. Additionally, we discussed the risk that at 36 weeks, we may have breathing issues that might require transfer of one or both of the babies to a tertiary care center, although I think this will be quite unlikely given gestational age. After prolonged discussion and answering all the patient and her 's questions, they have decided to proceed with controlled section for delivery at this time. For the rest of the patient's detailed history and physical, please see her dictated history and physical. ASSESSMENT: A 37-year-old 2, para 1-0-0-1 at 36 and 0/7 weeks with dichorionic diamniotic in vitro fertilization twins. She has now developed preeclampsia with severe features with a creatinine of 1.1, 3+ proteinuria and platelets of 114,000. I discussed the case with Dr. Fernández at [facility], maternal medicine and they have recommended delivery. The patient and her have elected delivery. HOSPITAL COURSE: The patient underwent a primary low transverse section to deliver 2 babies, the first was a viable baby delivered from the breech presentation and this baby was male, Apgars 7 and 8, weighing 6 pounds. Baby B was transverse after the delivery of baby A and was converted from the head in the left upper quadrant to cephalic. Amniotomy was performed and then delivered from a cephalic presentation, Apgars of 7, 7 and 8 and weight 5 pounds 15 ounces. Clear fluid was noted with both babies. Normal uterus, tubes, and ovaries were noted bilaterally. The patient went to the recovery room. where she remained on 24 hours of magnesium sulfate prophylaxis. She was then transferred to the floor. The baby boy did well. The baby girl was in the intermediate nursery. The patient tolerated a regular diet, ambulated without difficulty, voided after the removal of her Cody catheter. She remained asymptomatic from a preeclampsia standpoint. She was discharged on postoperative day #4. Her discharge hemoglobin and hematocrit were 9.3 and 28.7. Her platelets on postoperative day #3 were 124,000. Her creatinine on discharge was 1.10. Her liver functions never bumped. She will be followed up closely in the office.
== END 2017-03-10 13:00 | disposition home or self-care (01) | DRG 766 ==
LOC: C.OPB 16:01 → C.LD 16:01 → C.OPB 20:45 → C.OBG 03-07 20:31
PROVIDERS: ADMIT Obstetrics & Gynecology; ATTEND Obstetrics & Gynecology
PROC: 10D00Z1 Extraction of Products of Conception, Low, Open Approach (ICD-10-PCS; principal; 2017-03-06 21:30)
DX: O30.043 Twin pregnancy, dichorionic/diamniotic, third trimester (principal); O14.14 Severe pre-eclampsia complicating childbirth; Z3A.36 36 weeks gestation of pregnancy; Z37.2 Twins, both liveborn

== ENCOUNTER → 2017-04-17 | Outpatient (CLI) | payer BC ==
[~2017-04-17] MED LIST changes: +CALC500C3 PO; +FAMO20TA11 PO; +MTR600X PO; -ONDA4TAB10 SL; +OXYC-57 PO
== END | disposition home or self-care (01) ==
LOC: C.PAPS 18:08
PROVIDERS: ATTEND Obstetrics & Gynecology
DX: Z12.4 Encounter for screening for malignant neoplasm of cervix (principal)